=== PATIENT | male | born 1960 | race Two or more races ===

== ENCOUNTER 2023-06-02 21:14 | Emergency (ER) | payer OTHER ==
[~2023-06-02] VITALS: Ht 167.6 cm; Wt 72.0 kg
[2023-06-02 21:15] VITALS: BP 127/67; PULSE 91; RESP 20; TEMP 98.5
[2023-06-02 23:38] VITALS: O2SAT 98
[2023-06-02] MEDS: KETOROLAC TROMETH 30 MG/ML 1ML VIAL IM ONE (23:40)
== END 2023-06-03 00:02 | disposition home or self-care (01) ==
LOC: ER 21:14
DX: G89.29 Other chronic pain (principal); M25.552 Pain in left hip
CPT/HCPCS: 96372; 99283; J1885